=== PATIENT | female | born 1980 ===

== ENCOUNTER 2018-03-17 22:24 | Emergency (ER) | payer SELFPAY ==
[~2018-03-17] VITALS: Ht 167.6 cm; Wt 59.0 kg
[2018-03-17 22:45] VITALS: BP 118/69
[2018-03-17] MEDS ORDERED: CLIN300C8 PO (23:01)
--- NOTE | 2018-03-17 23:02 | PHYS DOC ---
Adult General Chief Complaint Chief Complaint: INSECT BITE HPI HPI Patient is a 37 year old female who presents with right upper arm spider bite that has turned into cellulitis and is weeping. Patient states it's been going on for the last couple of days. Patient denies any fevers and is currently afebrile. Patient states her only allergy to medications's Zofran. Patient states she is currently on her menses. Patient states her tetanus is up-to- date. [place]. Rates her pain a 10 out of 10 and is burning. Review of Systems Review of Systems Constitutional: Denies fever or chills [] Eyes: Denies change in visual acuity, redness, or eye pain [] HENT: Denies nasal congestion or sore throat [] Respiratory: Denies cough or shortness of breath [] Cardiovascular: No additional information not addressed in HPI [] GI: Denies abdominal pain, nausea, vomiting, bloody stools or diarrhea [] : Denies dysuria or hematuria [] Musculoskeletal: Denies back pain or joint pain [] Integument: Denies rash or skin lesions. Right upper arm cellulitis with a bug bite. [] Neurologic: Denies headache, focal weakness or sensory changes [] Endocrine: Denies polyuria or polydipsia [] All other systems were reviewed and found to be within normal limits, except as documented in this note. Current Medications Current Medications Current Medications Medications (Trade) Dose Ordered Sig/Mary Start Time Stop Time Status Last Admin Dose Admin Acetaminophen/ Hydrocodone Bitart (Lortab 5/325) 1 tab 1X ONCE 03/17/18 23:30 03/17/18 23:31 Mupirocin (Bactroban) 1 tammy 1X ONCE 03/17/18 23:30 03/17/18 23:31 Allergies Allergies Allergies Coded Allergies Type Severity Reaction Last Updated Verified ondansetron Allergy Intermediate 03/17/18 Yes Physical Exam Physical Exam Constitutional: Well developed, well nourished, no acute distress, non-toxic appearance. [] HENT: Normocephalic, atraumatic, bilateral external ears normal, oropharynx moist, no oral exudates, nose normal. [] Eyes: PERRLA, EOMI, conjunctiva normal, no discharge. [] Neck: Normal range of motion, no tenderness, supple, no stridor. [] Cardiovascular:Heart rate regular rhythm, no murmur [] Lungs & Thorax: Bilateral breath sounds clear to auscultation [] Abdomen: Bowel sounds normal, soft, no tenderness, no masses, no pulsatile masses. [] Skin: Warm, dry, no erythema, no rash. Right upper posterior arm Cellulitis that extends from elbow crease to mid posterior forearm. Warm to touch. Wound not currently weeping. [] Back: No tenderness, no CVA tenderness. [] Extremities: No tenderness, no cyanosis, no clubbing, ROM intact, no edema. [] Neurologic: Alert and oriented X 3, normal motor function, normal sensory function, no focal deficits noted. [] Psychologic: Affect normal, judgement normal, mood normal. [] Current Patient Data Vital Signs Vital Signs Date Time Temp Pulse Resp B/P (MAP) Pulse Ox O2 Delivery O2 Flow Rate FiO2 03/17/18 22:45 98.6 99 18 98 Room Air 98.6 EKG EKG [] Radiology/Procedures Radiology/Procedures [] Course & Med Decision Making Course & Med Decision Making On examination patient's posterior upper arm has red cellulitis from elbow crease down to mid forearm posteriorly. There is a 1 cm cervical abscess that is blisterlike and filled with purulent drainage. This blister is popped in wound is cleaned and Bactroban is applied with a nonadherent 4 x 4 dressing. She is to be sent home on clindamycin antibiotic 450 mg 3 times a day 7 days. Patient is to follow-up with her primary care doctor. Patient to take [place] for pain and ibuprofen and to use Bactroban cream on the wound at least 3 times a day. Patient is agreeable to this discharge plan. Patient is afebrile. Patient has a present radial pulse. Cap refill is less than 3 seconds. She denies any body aches or fever. Patient denies any nausea or vomiting. Patient states that she thinks it is a spider bite did not see what bit her. Patient is stable and in no distress. [] Dragon Disclaimer Dragon Disclaimer This electronic medical record was generated, in whole or in part, using a voice recognition dictation system. Departure Departure Impression: Primary Impression: Insect bite Additional Impression: Cellulitis Disposition: 01 HOME, SELF-CARE Condition: STABLE Referrals: NO PCP (PCP) Patient Instructions: Cellulitis Additional Instructions: Keep wound covered. Take medications as prescribed and follow up with your primary care. Scripts Mupirocin Calcium (BACTROBAN CREAM) 15 Gm Cream..g. 1 TAMMY TP TID for Cellulitis wound, #30 GM Prov: MELISSA POPE APRN 03/17/18 Hydrocodone/Apap 5-325 (NORCO 5-325 TABLET) 1 Each Tablet 1 TAB PO PRN Q6HRS PRN for PAIN, #5 TAB 0 Refills Prov: MELISSA POPE APRN 03/17/18 Clindamycin Hcl (CLINDAMYCIN HCL) 300 Mg Capsule 450 MG PO TID for Cellulitis for 7 Days, #32 CAP Prov: MELISSA POPE APRN 03/17/18 Problem Qualifiers Primary Impression: Insect bite Encounter type: initial encounter Qualified Codes: W57.XXXA - Bitten or stung by nonvenomous insect and other nonvenomous arthropods, initial encounter Additional Impression: Cellulitis Site of cellulitis: extremity Site of cellulitis of extremity: upper extremity Laterality: right Qualified Codes: L03.113 - Cellulitis of right upper limb MELISSA POPE APRN Mar 17, 2018 23:01
[2018-03-17] MEDS ORDERED: HYDR-971 PO (23:05)
[2018-03-17] MEDS ORDERED: MUPI15CR TP (23:20)
[2018-03-17] MEDS ORDERED: MUPIROCIN 2 % TOPICAL CREAM 15GM TUBE. TP ONE (23:30)
[2018-03-17] MEDS ORDERED: HYDROcodone/APAP 5/325MG 1 TAB TABLET PO ONE (23:30)
== END 2018-03-17 23:32 | disposition home or self-care (01) ==
LOC: ER 22:24
DX: T63.301A Toxic effect of unspecified spider venom, accidental (unintentional), initial encounter (principal); L03.113 Cellulitis of right upper limb; Z88.8 Allergy status to other drugs, medicaments and biological substances; Y92.89 Other specified places as the place of occurrence of the external cause
CPT/HCPCS: 99283